=== PATIENT | male | born 1955 | race Caucasian/White ===

== ENCOUNTER → 2019-02-11 | Day surgery (SDC) | payer OTHER ==
[~2019-02-11] VITALS: Ht 185.4 cm; Wt 90.7 kg
[~2019-02-11] MED LIST: ASA81BEC PO; CALCIUM 500 +1 EACH PO; LIPITOR40 MG PO; LISINOPRIL2.5 MG PO; OMEGA-3 FLAXS1000 MG PO; PLAVIX 75 MG TA75 MG PO; TIROSINT25 MCG PO; TUMS200 MG PO; ZETIA10 MG PO
[2019-02-11 13:14] VITALS: BP 115/68
--- NOTE | 2019-02-12 18:06 | PATH ---
[facility] [place] [address] PATHOLOGY RPT PROCEDURE Name: FARIDEH GONZALEZ Room #: REG [facility]..#: [id number] Admission: 02/11/19 Date of : 55 Discharge: Report #: [id number] Path Case #: [id number] [facility] Accession Number: [id number] . 01 Material submitted: . PART A: canthus - LEFT LOWER LID MEDIAL CANTHUS LESION. Modifiers: left, lower, medial PART B: eyelid - ADDITIONAL LATERAL MARGIN LEFT EYE LOWER LID LESION. Modifiers: left, lower, lateral . 02 Frozen section diagnosis: . FROZEN SECTION DIAGNOSIS: (Dionne Mckeon M.D.) . FSA1. Skin, left lower lid lesion, excision: - BASAL CELL CARCINOMA. - Close to lateral margin and remaining margins are widely free of malignancy. . FSB1. Skin, additional lateral margin, biopsy: - Negative for invasive carcinoma on FS slide. . These findings are discussed with Dr. Jared Abbasi in OR6 and a written report is placed in the patient's chart. (IUV/db; 02/11/2019) . . FROZEN SECTION GROSS DESCRIPTION: A. Received fresh from the OR labeled with the patient's name, and "left lower lid medial canthus lesion" consists of an oriented ellipse of skin measuring 1.5 x 0.5 x 0.3 cm. The specimen is oriented by Dr. Abbasi as superior, lateral, inferior and medial. These are designated 12:00, 3:00, 6:00 and 9:00, respectively. At this point the specimen is inked as follows: 12 to 3 to 6:00 is inked black, 6 to 9:00 is inked blue and 9 to 12:00 is inked green. At this point the specimen is serially sectioned and entirely submitted for frozen section as FSA1. This is subsequently submitted for permanent sections as A1. . B. Received fresh from the OR labeled with the patient's name, and "additional lateral margin" consists of a thin strip of skin measuring 1.5 cm. The new margin is inked with blue ink. The specimen is submitted en-face for frozen section as FSB1. This is subsequently submitted for permanent sections as B1. (IUV/db; 02/11/2019) . Frozen section performed at [facility], [address] [place] [address] , [place] [address]. IZV/LBQ . [address] [address] PATHOLOGY RPT PROCEDURE Name: FARIDEH GONZALEZ Room #: REG [facility] Katie#: [id number] Admission: 02/11/19 Date of : 55 Discharge: Report #: [id number] Path Case #: [id number] Diagnosis: A. Skin, left lower lid medial canthus lesion, excision: - BASAL CELL CARCINOMA. - Margins of resection free of malignancy. . B. Skin, left eye lower lid lesion, excision: - Reactive changes. - Negative for malignancy. . (IUV:blue line hanger; 02/12/2019) MBR 02/12/2019 1627 Local . 02 Electronically signed: . Dionne Mckeon MD, Pathologist NPI- [id number] . 01 Gross description: . SEE FROZEN SECTION GROSS DESCRIPTION. /TOB 02/12/2019 0937 Local . 02 Pathologist provided ICD-10: C44.1192 . 02 CPT . 043044, 494865, 503881, [id number] Specimen Comment: A courtesy copy of this report has been sent to [phone] Specimen Comment: [phone] Specimen Comment: Report sent to and Performed at: [address], [place] [id number] MD David Jalloh MD Phone: [phone] Performed at: [address] [id number] MD Dionne Mckeon MD Phone: [phone]
--- NOTE | 2019-02-15 06:16 | O ---
[facility] [place] [address] OPERATIVE REPORT Name: FARIDEH GONZALEZ Room #: REG [facility]..#: [id number] Admission: 02/11/19 Attend Phys: Jared Abbasi MD Discharge: Date of : 55 Report #: [id number] THIS REPORT FOR: //name// CC: Michele Suh PREOPERATIVE DIAGNOSIS: Tumor of left lower lid and medial canthus. POSTOPERATIVE DIAGNOSIS: Tumor of left lower lid and medial canthus, basal cell carcinoma. PROCEDURE: Excision of lesion of left lower lid, medial canthus with frozen sections and myocutaneous flap repair of defect. SURGEON: Jared Abbasi MD. FARM REPORTER: None. ANESTHESIA: MAC. COMPLICATIONS: None. INDICATIONS FOR SURGERY: This pleasant 63-year-old gentleman has a nodular, ulcerative, pigmented lesion in his left medial canthus, extending onto his lower lid that appears to be a basal cell carcinoma. He presents today for excision of this lesion with frozen sections and subsequent repair of that defect. Informed consent was obtained to include, but not limited to the potential risk for loss of vision, bleeding, infection, failure to improve the problem, the potential need for further surgery or treatment. DESCRIPTION OF PROCEDURE: The patient was taken to the operating room where 2% Xylocaine with epinephrine mixed with equal parts 0.75% Marcaine with Wydase was administered transcutaneously to the left medial canthus, the left upper lid, the bridge of the nose and the medial left lower lid. The patient was subsequently prepped and draped in the usual sterile fashion. A fine tip skin marking pen was then utilized to outline the lesion including 1-2 mm of normal-appearing tissue. The incisions were then made with a 15 blade in an elliptical fashion parallel to the nasojugal fold. The deeper dissection was accomplished with a Fadumo scissors. Relatively brisk bleeding ensued because the lesion was directly overlying the angular artery. The specimen was then oriented on a drawing for the waiting pathologist as hemostasis was achieved in the field with monopolar cautery. The pathologist snap froze that specimen and found that the lesion was indeed a basal cell carcinoma and that we were positive laterally. An additional lateral margin was taken of approximately 2-3 mm. The pathologist snap froze that tissue and found that our margins were now [address] [address] OPERATIVE REPORT Name: FARIDEH GONZALEZ Room #: REG [facility]..#: [id number] Admission: 02/11/19 Attend Phys: Jared Abbasi MD Discharge: Date of : 55 Report #: [id number]. Attention was then turned to repair the ensuing defect. The area was undermined sufficiently to allow myocutaneous flap to be advanced from lateral. Hemostasis was then re-achieved. The flap was then advanced and secured with interrupted 6-0 plain gut sutures. The wound was then cleaned and dressed with erythromycin ophthalmic ointment. The patient subsequently transported to the recovery area having tolerated the procedure well with no anesthetic or operative complications being noted. <ELECTRONICALLY SIGNED> By: Jared Abbasi MD 02/15/19 0616 1513 1528 Jared Abbasi MD /nt
== END | disposition home or self-care (01) ==
LOC: OR 08:52
DX: C44.1192 Basal cell carcinoma of skin of left lower eyelid, including canthus (principal); I10 Essential (primary) hypertension; I25.2 Old myocardial infarction; E78.00 Pure hypercholesterolemia, unspecified; J45.909 Unspecified asthma, uncomplicated; E03.9 Hypothyroidism, unspecified; K21.9 Gastro-esophageal reflux disease without esophagitis; F17.210 Nicotine dependence, cigarettes, uncomplicated; Z98.890 Other specified postprocedural states; Z79.899 Other long term (current) drug therapy; Z88.2 Allergy status to sulfonamides; Z79.82 Long term (current) use of aspirin
CPT/HCPCS: 50010; 50101; 50386; 50398; 51636; 56531; 62110; 62850